=== PATIENT | male | born 1980 | race Caucasian/White ===

== ENCOUNTER 2024-01-23 12:43 | Emergency (ER) | payer OTHER ==
[~2024-01-23] VITALS: Ht 180.3 cm; Wt 63.5 kg
[2024-01-23 15:47] VITALS: BP 136/74; TEMP 98.1; O2SAT 98
== END 2024-01-23 15:48 | disposition home or self-care (01) ==
LOC: ER 12:43
DX: S92.521A Displaced fracture of middle phalanx of right lesser toe(s), initial encounter for closed fracture (principal); S63.617A Unspecified sprain of left little finger, initial encounter; X58.XXXA Exposure to other specified factors, initial encounter; Y93.89 Activity, other specified; Y92.89 Other specified places as the place of occurrence of the external cause; Y99.8 Other external cause status
CPT/HCPCS: 73140; 73660; A4606; A4663